=== PATIENT | female | born 1935 | race Caucasian/White ===

== ENCOUNTER 2016-07-29 05:53 | Emergency (ER) | payer MEDICARE, OTHER ==
[~2016-07-29] VITALS: Ht 157.5 cm; Wt 75.0 kg
[~2016-07-29 05:53] MED LIST: ASPI-110 PO; BIOT1000 PO; COEN1CAP PO; FLUT1SPR5 EACH NARE; LANS30CA PO; MULT-135 PO; PRAV20TA2 PO
[2016-07-29 05:55] VITALS: BP 134/81; PULSE 92; RESP 16; TEMP 97.8; O2SAT 92
[2016-07-29] MEDS ORDERED: PROPOFOL 200 MG/20 ML AMP IV ONE (06:00)
[2016-07-29] MEDS ORDERED: SODIUM CHLORIDE 0.9% FLUSH 10 ML FLUSH IVF PRN (06:00)
[2016-07-29 06:40] VITALS: O2SAT 96
--- NOTE | 2016-07-29 06:43 | PD ---
HPI Chief Complaint: Fall Time Seen by Provider: 05:55 Travel History International Travel<30 days: No Contact w/Intl Traveler<30days: No Traveled to known affect area: No History of Present Illness HPI 81-year-old female. Patient has a history of recurrent left hip dislocation. Today she rolled over in bed and felt a sudden onset severe left hip pain. She called EMS. They administered 10 mg morphine and brought her here. She reports moderate improvement. No other traumatic injury to report. She has a history of left total hip arthroplasty. PFSH Past Medical History Hx Anticoagulant Therapy: Yes (ASA 81 MG PO) Arthritis: Yes Cardiac Catheterization: Yes Cardiovascular Problems: Yes (HYPERLIPIDEMIA/CARDIAC WORK UP RECENTLY) High Cholesterol: Yes Gastrointestinal Disorders: Yes (barretts esophagus) Musculoskeletal: Yes (arthritis) Tetanus Vaccination: < 5 Years PNEUMOCCOCAL Vaccine (Year): 1 Menopausal: Yes : 2 Past Surgical History Abdominal Surgery: Yes (lap karli) Cholecystectomy: Yes (LAP KARLI ) Gynecologic Surgery: Yes (x2 vaginal deliveries) Joint Replacement: Yes (BILATERAL HIP REPLACEMENT , R KNEE ) Oral Surgery: Yes Thoracic Surgery: No Tonsillectomy: Yes Other Surgery: Yes Social History Alcohol Use: Yes (OCC WINE) Tobacco Use: No Substance Use: No Allergies-Medications (Allergen,Severity, Reaction): Coded Allergies: HMG-CoA Reductase Inhibitors (Verified Allergy, Severe, 07/29/16) cant move Lipitor (Verified Allergy, Severe, muscle weakness, 07/29/16) Reported Meds & Prescriptions Reported Meds & Active Scripts Active Reported Lansoprazole 30 Mg Capdr 30 Mg PO DAILY Multi Vitamin (Multiple Vitamin) 1 Tab Tab 1 Tab PO DAILY Flonase Allergy Relief Nasal [place] (Fluticasone Nasal [place]) 50 Mcg/Act [place] 1 [place] EACH NARE DAILY PRN Co Q-10 (Coenzyme Q10 (Ubidecarenone)) 100 Mg Cap 100 Mg PO HS Biotin 1,000 Mcg Tab 1,000 Mcg PO DAILY Aspirin 81 (Aspirin) 81 Mg Tabdr 81 Mg PO DAILY Pravastatin 20 Mg Tab 20 Mg PO HS Review of Systems Except as stated in HPI: all other systems reviewed are Neg Physical Exam Narrative GENERAL: 81-year-old female pleasant well-nourished well-developed SKIN: Focused skin assessment warm/dry. HEAD: Atraumatic. Normocephalic. EYES: Pupils equal and round. No scleral icterus. No injection or drainage. ENT: No nasal bleeding or discharge. Mucous membranes pink and moist. NECK: Trachea midline. No JVD. CARDIOVASCULAR: Regular rate and rhythm. No murmur appreciated. RESPIRATORY: No accessory muscle use. Clear to auscultation. Breath sounds equal bilaterally. GASTROINTESTINAL: Abdomen soft, non-tender, nondistended. Hepatic and splenic margins not palpable. MUSCULOSKELETAL: Left lower extremity shortened and internally rotated. NEUROLOGICAL: Awake and alert. No obvious cranial nerve deficits. Motor grossly within normal limits. Normal speech. PSYCHIATRIC: Appropriate mood and affect; insight and judgment normal. Data Data Last Documented VS Vital Signs Date Time Temp Pulse Resp B/P Pulse Ox O2 Delivery O2 Flow Rate FiO2 07/29/16 07:17 97 07/29/16 06:40 Nasal Cannula 2 07/29/16 05:55 97.8 92 16 134/81 Vital signs reviewed Orders Hip, Uni(Ap&Lat) Wo Ap Pelvis (07/29/16 05:55) Iv Access Insert/Monitor (07/29/16 05:55) Oximetry (07/29/16 05:55) [employer] Request For Service (07/29/16 05:55) Ecg Monitoring (07/29/16 05:55) Sodium Chloride 0.9% Flush (Ns Flush) (07/29/16 06:00) Propofol 200 Mg/20 Ml Inj (Diprivan 200 (07/29/16 06:00) Pelvis, Ap Only (Routine) (07/29/16 ) Naloxone Inj (Narcan Inj) (07/29/16 07:15) Immobilizer Knee 20 Inch (07/29/16 ) [facility] Medical Decision Making Medical Screen Exam Complete: Yes Emergency Medical Condition: Yes Medical Record Reviewed: Yes Differential Diagnosis hip dislocation dislocation, femur fracture, pelvis fracture Narrative Course Hip reduced. Post reduction film normal. Knee immobilizer. F/u w ortho. Last 24 hours Impressions Hip X-Ray 07/29/16 0555 Signed Impressions: Service Date/Time: Friday, July 29, 2016 06:36 - CONCLUSION: Left hip prosthesis dislocation. Buzz Leal Jr., MD Pelvis X-Ray 07/29/16 0000 Signed Impressions: Service Date/Time: Friday, July 29, 2016 07:19 - CONCLUSION: Successful reduction of the previously seen left femoral component dislocation. Rocco Sanchez MD Diagnosis Primary Impression: Dislocation of hip, left, closed Qualified Code: S73.005S - Dislocation of hip, left, closed, sequela Referrals: Orthopaedic Surgeon 3 days Additional Instructions: You have a choice when it comes to health care, and we are glad that you chose [facility]. Hopefully, we have met your expectations on today's visit. You are welcome to return to [facility] at any time, as we are committed to meeting the health care needs of our community. Med/Other Pt SpecificInfo: No Change to Meds Disposition: 01 DISCHARGE HOME Condition: Stable Andre Hart MD Jul 29, 2016 06:43
--- NOTE | 2016-07-29 06:56 | RADRPT ---
EXAM DATE/TIME: 07/29/2016 06:36 [facility] COMPARISON: No previous studies available for comparison. INDICATIONS : Fall. Left hip dislocation. MEDICAL HISTORY : Osteoarthritis. SURGICAL HISTORY : None. Total hip. ENCOUNTER: Initial ACUITY: 1 day PAIN SCORE: 9/10 LOCATION: Left pelvis FINDINGS: 2 views of the left hip reveal bilateral hip prostheses. There is superior dislocation of the femoral head component from the acetabular component involving the left hip. No fracture observed. CONCLUSION: Left hip prosthesis dislocation. Buzz Leal Jr., MD on July 29, 2016 at 6:53 Board Certified Radiologist. This report was verified electronically.
[2016-07-29] MEDS ORDERED: NALOXONE HCL 0.4 MG/ML AMP IV PUSH ONE (07:15)
[2016-07-29 07:17] VITALS: O2SAT 97
--- NOTE | 2016-07-29 07:29 | RADRPT ---
EXAM DATE/TIME: 07/29/2016 07:19 [facility] COMPARISON: HIP LEFT (AP&LAT 2/3VWS) WO AP PELVIS, July 29, 2016, 6:36. PELVIS AP ONLY, February 23, 2016, 11:0 0. PELVIS AP ONLY, February 23, 2016, 12:25. INDICATIONS : Post reduction. MEDICAL HISTORY : Osteoarthritis. SURGICAL HISTORY : Bilateral hip replacements. ENCOUNTER: Subsequent ACUITY: 1 day PAIN SCORE: 0/10 LOCATION: Left hip. FINDINGS: Bilateral hip prostheses are in place. The previously seen left femoral component dislocation has bee n successfully reduced. No fracture is seen. The pubic symphysis and sacroiliac joints appear normall y aligned. CONCLUSION: Successful reduction of the previously seen left femoral component dislocation. Rocco Sanchez MD on July 29, 2016 at 7:24 Board Certified Radiologist. This report was verified electronically.
== END 2016-07-29 10:18 | disposition home or self-care (01) ==
LOC: NEPC 05:53
DX: T84.021A Dislocation of internal left hip prosthesis, initial encounter (principal); E78.00 Pure hypercholesterolemia, unspecified; K22.70 Barrett's esophagus without dysplasia; Z96.643 Presence of artificial hip joint, bilateral; X50.0XXA Overexertion from strenuous movement or load, initial encounter; X50.9XXA Other and unspecified overexertion or strenuous movements or postures, initial encounter; Y93.89 Activity, other specified; Y92.003 Bedroom of unspecified non-institutional (private) residence as the place of occurrence of the external cause; Z79.82 Long term (current) use of aspirin
CPT/HCPCS: 27265; 72170; 73502; 99283; L1830

== ENCOUNTER 2018-03-23 15:38 | Inpatient (IN) ==
--- NOTE | 2018-03-23 16:20 | ED ---
HPI General Chief Complaint: Fall Stated Complaint: Fall Time Seen by Provider: 03/23/18 16:15 Source: patient and EMS Mode of arrival: EMS Limitations: no limitations History of Present Illness HPI Narrative: 82-year-old female patient with previous history of left hip dislocation, presents to the ER today because she had lost balance and fell onto the left hip area, is currently complaining of left hip pain. She denies any head injury, loss of consciousness, or any other injuries. She is unable to range the left hip secondary to pain. Modifying Factors: None Associated Signs & Symptoms: Fall, left hip injury Risk Factors: Previous history of left hip dislocation Related Data Home Medications Medication Instructions Recorded Confirmed aspirin [Ecotrin Low Strength] 81 mg PO DAILY 03/23/18 03/23/18 fesoterodine [Toviaz] 4 mg PO DAILY 03/23/18 03/23/18 lansoprazole 30 mg PO DAILY 03/23/18 03/23/18 multivitamin [Multiple Vitamins] 1 tab PO DAILY 03/23/18 03/23/18 Allergies Allergy/AdvReac Type Severity Reaction Status Date / Time amlodipine Allergy Severe Weakness Verified 03/23/18 16:15 atorvastatin Allergy Severe muscle Verified 03/23/18 16:15 weakness pravastatin Allergy Severe Weakness Verified 03/23/18 16:15 simvastatin Allergy Severe Weakness Verified 03/23/18 16:15 Review of Systems ROS: all other systems reviewed are negative [facility] Medical History Medical History Mosqueda esophagus (Acute) Hip dislocation, left (Acute) Surgical History Surgical History History of hip replacement (Acute) History of knee replacement (Acute) Social History Social History Substance History: No History of Abuse Smoking Status: Never smoker How Often Do You Have a Drink Containing Alcohol: Never Recent Travel in [facility] within the Last 8 Weeks: No Recent Out of Country Travel within the Last 8 Weeks: No Immunization History Tetanus Immunization: <5 Years Exam Narrative Exam Narrative: GENERAL: Well-developed elderly female patient currently in moderate distress. Awake and oriented x3. SKIN: Focused skin assessment warm/dry. HEAD: Atraumatic. Normocephalic. EYES: Pupils equal and round. No scleral icterus. No injection or drainage. ENT: No nasal bleeding or discharge. Mucous membranes pink and moist. NECK: Trachea midline. No JVD. CARDIOVASCULAR: Regular rate and rhythm. No murmur appreciated. RESPIRATORY: No accessory muscle use. Clear to auscultation. Breath sounds equal bilaterally. GASTROINTESTINAL: Abdomen soft, non-tender, nondistended. Hepatic and splenic margins not palpable. Pelvis: Stable, tender palpation of the left hip area, decreased range of motion , held in flexion secondary to pain. Bounding dorsal pedis pulses and neurovascularly intact below the injury. MUSCULOSKELETAL: No obvious deformities. No clubbing. No cyanosis. No edema. NEUROLOGICAL: Awake and alert. No obvious cranial nerve deficits. Motor grossly within normal limits. Normal speech. PSYCHIATRIC: Appropriate mood and affect; insight and judgment normal. Course Initial Documented Vital Signs Temperature 98.7 F 03/23/18 16:04 Pulse Rate 90 03/23/18 16:04 Respiratory Rate 14 03/23/18 16:04 Blood Pressure 147/73 H 03/23/18 16:04 Pulse Oximetry 89 L 03/23/18 16:04 Last Documented Vital Signs Temperature 98.7 F 03/23/18 16:04 Pulse Rate 87 03/23/18 18:21 Respiratory Rate 14 03/23/18 18:21 Blood Pressure 146/73 H 03/23/18 18:21 Pulse Oximetry 96 03/23/18 18:21 Medical Decision Making MDM Narrative Medical decision making narrative: Initial x-ray did not show any signs of acute fractures but patient was fairly tender and CAT scan was done, shows fractures around the prosthesis area. Case was discussed with Dr. Rose who is covering for Dr. Avery, and he states that the patient should be medically admitted with consult to Dr. Avery. Case was discussed with Dr. Naik for admission. Medical Screen Exam Complete: Yes Emergency Medical Condition: Yes Differential Diagnosis Differential Diagnosis: Hip contusion versus fractures versus dislocation Imaging Data Attestation: I personally reviewed and interpreted this imaging study as follows : Radiologist's impression: Hip X-Ray 03/23/18 16:12 CONCLUSION: Intact bilateral total hip prosthesis for technique and no evidence for fracture . Hip CT 03/23/18 16:53 CONCLUSION: 1. There are fractures not visualized on the patient's prior plain radiographs involving the left femur, however the total hip arthroplasty appears intact and alignment is anatomical. Discharge Plan Discharge Disposition Patient Disposition: ED Admit(ED Internal Use Only) Discharge Condition Condition: Stable Discharge Order Discharge Orders: ED Use Only Admit Order (Routine); Ordered 03/23/18 Ordered By: Hamida Glez Discharge Details Anticipated Discharge Date: 03/23/18 Diagnosis: Closed fracture of left hip Physicians Team ED Provider: Hamida Glez Primary Care Provider: Luz Santos Rxs /Orders / Referrals /Forms Prescriptions: No Action multivitamin [Multiple Vitamins] Tablet 1 tab PO DAILY RF: 0 aspirin [Ecotrin Low Strength] 81 mg Tablet,Delayed Release (Dr/Ec) 81 mg PO DAILY RF: 0 lansoprazole 30 mg Capsule,Delayed Release(Dr/Ec) 30 mg PO DAILY RF: 0 fesoterodine [Toviaz] 4 mg Tablet Extended Release 24 Hr 4 mg PO DAILY RF: 0 Discharge Interventions Interventions: Vital Signs Last Done: 03/23/18 18:21 Discharge Planning - Case Management Last Done: 03/23/18 17:38 Status ED Status: Admitted Patient
--- NOTE | 2018-03-23 16:45 | XR ---
EXAM DATE: 03/23/2018 4:40 PM EST AGE/SEX: 82 years / Female INDICATIONS: Pain from fall on right side. CLINICAL DATA: This is the patient's initial encounter. Patient reports that signs and symptoms have been present for 1 day and indicates a pain score of 10/10. MEDICAL/SURGICAL HISTORY: None. . Hip replacement, bilateral. COMPARISON: No prior exams available for comparison. FINDINGS: Total hip arthroplasty is in place bilaterally. The femoral and acetabular components parris ear intact. There are no signs of loosening or fracture. No definite fractures, or dislocations are identified. No definite lytic or sclerotic lesion is seen . There are degenerative changes in lower lumbosacral spine and symphysis pubi. CONCLUSION: Intact bilateral total hip prosthesis for technique and no evidence for fracture . Electronically signed by: Tamiko Washington MD Board Certified Radiologist 03/23/2018 4:43 PM EST
--- NOTE | 2018-03-23 18:30 | CT ---
EXAM DATE: 03/23/2018 6:23 PM EST AGE/SEX: 82 years / Female INDICATIONS: Trauma; fall. Left hip pain. CLINICAL DATA: This is the patient's initial encounter. Patient reports that signs and symptoms have been present for 1 day and indicates a pain score of 7/10. MEDICAL/SURGICAL HISTORY: . Left hip dislocation, Mosqueda's esophagus . hip and knee replacements RADIATION DOSE: 24.88 CTDI (mGy) COMPARISON: No prior exams available for comparison. TECHNIQUE: Multiple contiguous axial images were acquired using a multirow detector CT scanner witho ut contrast. Multiplanar reconstruction was performed in the sagittal and coronal planes. Using aut omated exposure control and adjustment of the mA and/or kV according to patient size, radiation dose was kept as low as reasonably achievable to obtain optimal diagnostic quality images. DICOM format i mage data is available electronically for review and comparison. FINDINGS: There are numerous diverticuli within the colon mainly the sigmoid colon without signs of diverticuli tis for technique. Hip arthroplasty is seen without signs of loosening, however there is a small fracture involving the proximal femur medially with a questionable fracture underneath the greater trochanter not visualized on the patient's plain radiographs. The alignment however is anatomical. CONCLUSION: 1. There are fractures not visualized on the patient's prior plain radiographs involving the left fe mur, however the total hip arthroplasty appears intact and alignment is anatomical. Electronically signed by: Tamiko Washington MD Board Certified Radiologist 03/23/2018 6:28 PM EST
[2018-03-23] MEDS ORDERED: Acetaminophen 325 MG Tablet PO PRN (19:01)
[2018-03-23] MEDS ORDERED: Bisacodyl 10 MG Supp RECTAL PRN (19:01)
[2018-03-23 19:03] LABS: Baso # (Auto) 0.1 th/mm3 (0.0-0.2); Baso % (Auto) 0.5 % (0.0-2.0); Eos # (Auto) 0.1 th/mm3 (0.0-0.4); Eos % (Auto) 0.5 % (0.0-4.0); Hematocrit 39.8 % (35.0-46.0); Hemoglobin 13.3 gm/dL (11.6-15.3); Lymph # (Auto) 1.1 th/mm3 (1.0-4.8); Lymph % (Auto) 8.9 % (9.0-44.0); Mean Corpuscular HGB Conc 33.4 % (32.0-36.0); Mean Corpuscular Hemoglobin 30.1 pg (27.0-34.0); Mean Corpuscular Volume 90.1 fL (80.0-100.0); Mean Platelet Volume 8.4 fL (7.0-11.0); Mono # (Auto) 0.6 th/mm3 (0.0-0.9); Mono % (Auto) 5.1 % (0.0-8.0); Neut # (Auto) 10.3 th/mm3 (1.8-7.7); Platelet Count 269 th/mm3 (150-450); Red Blood Count 4.41 mil/mm3 (4.00-5.30); Red Cell Distribution Width 13.2 % (11.6-17.2); White Blood Count 12.2 th/mm3 (4.0-11.0)
[2018-03-23 19:22] LABS: Calcium 8.7 mg/dL (8.5-10.1); Carbon Dioxide 24.1 meq/L (21.0-32.0); Potassium 3.9 meq/L (3.5-5.1)
[2018-03-23] MEDS: Sod Chloride 0.9% Inj 1,000 ML IV.CONT SCH (19:55)
[2018-03-23] MEDS: diazePAM 5 MG Tablet PO PRN (20:05)
--- NOTE | 2018-03-23 20:13 | P.HPIM ---
History of Present Illness Primary Care Physician: Luz Santos MD History of Present Illness: This is an 82-year-old female with a PMH of Mosqueda's Esophagus and h/o Hip Replacement who was brought to the ER after fall w/ complaints of left hip pain. Pain is intermittent, sharp, severe, 10/10, associated w/ muscle spasm and worse w/ movement. No head trauma or LOC reported. On arrival, BP 147/73, HR 90, O2 sat 97% on RA, Afebrile. WBC 12.2. Chemistry unremarkable except for GFR 66. Hip X-ray intact bilateral hip prosthesis CT Hip fractures not seen on x-rays involving left femur. Ortho consulted, plan is for surgical intervention in am. - Diagnosis (1) Fall (2) Closed fracture of left hip (3) Leukocytosis (4) Dehydration Inpatient Certification: I certify that the inpatient services were ordered in accordance with Medicare regulations governing the order. This includes certification that hospital inpatient services are reasonable and necessary and in the case of services not specified as inpatient-only under 42 CFR 419.22(n), that they are appropriately provided as inpatient services in accordance to with the 2-midnight benchmark under 43 CFR 412.3(e) Estimated Total Length of Stay (Days): 2 Plans for Post Hospital Care: Not yet determined Review of Systems PAST FAMILY HISTORY: Reviewed. No h/o DM or CAD All other systems reviewed negative except as stated in HPI PMFSH - History History Provided By: Patient, Family Member - Medical History Medical History: Medical History (Last Reviewed 03/23/18 @ 16:20 by Hamida Glez MD) Mosqueda esophagus Hip dislocation, left - Surgical History Surgical History: Surgical History (Last Reviewed 03/23/18 @ 16:20 by Hamida Glez MD) History of hip replacement History of knee replacement - Tobacco History Smoking Status: Never smoker - Alcohol History How Often Do You Have a Drink Containing Alcohol: Never - Substance Use History Substance History: No History of Abuse - Travel History Recent Travel in the [place] Within the Last 8 Weeks: No Recent Travel Out of the Country Within the Last 8 Weeks: No - Immunization History Tetanus Immunization: <5 Years Medications and Allergies Active Medications: Active Medications Acetaminophen (Tylenol) 650 mg PO Q4H PRN PRN Reason: Temp > 100.4 Hydrocodone Bitart/Acetaminophen ([place] 5/325) 1 tab PO Q4H PRN PRN Reason: PAIN 3-5 Last Admin: 03/23/18 19:57 Dose: 1 tab Al Hydroxide/Mg Hydroxide (Milk Of Magnesia Liq) 30 ml PO Q12H PRN PRN Reason: Mild Constipation Bisacodyl (Dulcolax Supp) 10 mg RECTAL DAILY PRN PRN Reason: SEVERE CONSITIPATION Diazepam (Valium) 5 mg PO Q8H PRN PRN Reason: MUSCLE SPASM Last Admin: 03/23/18 20:05 Dose: 5 mg Sodium Chloride (Ns Inj) 1,000 mls @ 100 mls/hr IV.CONT .Q10H NORY Last Admin: 03/23/18 19:55 Dose: 100 mls/hr Lactulose (Lactulose Liq) 30 ml PO DAILY PRN PRN Reason: SEVERE CONSITIPATION Morphine Sulfate (Morphine Inj) 2 mg IV.PUSH Q4H PRN PRN Reason: PAIN 6-10 Multivitamins (Theragran) 1 tab PO DAILY [facility] Ondansetron HCl (Zofran Inj) 4 mg IV.PUSH Q6H PRN PRN Reason: NAUSEA OR VOMITING Pantoprazole Sodium (Protonix) 40 mg PO DAILY [facility] Senna/Docusate Sodium (Garima-Colace) 1 tab PO BID [facility] Sennosides (Senokot) 17.2 mg PO Q12H PRN PRN Reason: Moderate Constipation Sodium Chloride (Ns Flush) 2 ml IV.FLUSH BID [facility] Sodium Chloride (Ns Flush) 2 ml IV.FLUSH PRN PRN PRN Reason: FLUSH AFTER USING IV ACCESS Tolterodine Tartrate (Detrol La) 4 mg PO DAILY [facility] Allergies Allergy/AdvReac Type Severity Reaction Status Date / Time amlodipine Allergy Severe Weakness Verified 03/23/18 16:15 atorvastatin Allergy Severe muscle Verified 03/23/18 16:15 weakness pravastatin Allergy Severe Weakness Verified 03/23/18 16:15 simvastatin Allergy Severe Weakness Verified 03/23/18 16:15 Home Medications Medication Instructions Recorded Confirmed Type aspirin [Ecotrin Low Strength] 81 mg PO DAILY 03/23/18 03/23/18 History fesoterodine [Toviaz] 4 mg PO DAILY 03/23/18 03/23/18 History lansoprazole 30 mg PO DAILY 03/23/18 03/23/18 History multivitamin [Multiple Vitamins] 1 tab PO DAILY 03/23/18 03/23/18 History Exam Vital signs: Vital Signs 03/23/18 16:04 03/23/18 16:09 03/23/18 18:21 Temperature 98.7 F Pulse Rate 90 91 H 87 Respiratory Rate 14 24 14 Blood Pressure 147/73 H 137/68 146/73 H Pulse Oximetry 89 L 97 96 03/23/18 19:00 Temperature Pulse Rate 96 H Respiratory Rate 18 Blood Pressure 159/74 H Pulse Oximetry 97 Intake & Output 03/23/18 03/23/18 03/24/18 06:59 18:59 06:59 Weight 79.379 kg Narrative: PE: GENERAL: Elderly white female in no acute distress. SKIN: Focused skin assessment warm and dry. HEENT: PERRLA, EOMI. No scleral icterus or conjunctival pallor. No lid lag or facial droop. CARDIOVASCULAR: Regular rate and rhythm. No obvious murmurs to auscultation. No chest tenderness to palpation. RESPIRATORY: No obvious rhonchi or wheezing. Clear to auscultation. Breath sounds equal bilaterally. GASTROINTESTINAL: Abdomen soft, non-tender, nondistended. BS normal. MUSCULOSKELETAL: Extremities without clubbing, cyanosis, or edema. No obvious deformities. Decreased ROM of LLE due to injury. NEUROLOGICAL: Awake, alert and oriented x4. No focal neurologic deficits. Moving both upper and lower extremities spontaneously. PSYCHIATRIC: Appropriate mood and affect. Insight and judgment normal. Results - Labs CBC & Chem 7: 03/23/18 18:30 03/23/18 18:30 Labs: Short CBC 03/23/18 Range/Units 18:30 WBC 12.2 H (4.0-11.0) th/mm3 Hgb 13.3 (11.6-15.3) gm/dL Hct 39.8 (35.0-46.0) % Plt Count 269 (150-450) th/mm3 BMP 03/23/18 18:30 Sodium 139 Potassium 3.9 Chloride 110 H Carbon Dioxide 24.1 BUN 18 Creatinine 0.83 Calcium 8.7 - Imaging Impressions Hip X-Ray 03/23/18 16:12 CONCLUSION: Intact bilateral total hip prosthesis for technique and no evidence for fracture . Hip CT 03/23/18 16:53 CONCLUSION: 1. There are fractures not visualized on the patient's prior plain radiographs involving the left femur, however the total hip arthroplasty appears intact and alignment is anatomical. Caprini VTE Risk Assessment Caprini VTE Risk Assessment: No/Low Risk (score <= 1) Caprini Risk Assessment Model: Point Value = 1 Point Value = 2 Point Value = 3 Point Value = 5 Age 41-60 Minor surgery BMI > 25 kg/m2 Swollen legs Varicose veins or History of unexplained or recurrent spontaneous Oral contraceptives or hormone replacement Sepsis (< 1 month) Serious lung disease, including pneumonia (< 1 month) Abnormal pulmonary function Acute myocardial infarction Congestive heart failure (< 1 month) History of inflammatory bowel disease Medical patient at bed rest Age 61-74 Arthroscopic surgery Major open surgery (> 45 min) Laparoscopic surgery (> 45 min) Malignancy Confined to bed (> 72 hours) Immobilizing plaster cast Central venous access Age >= 75 History of VTE Family history of VTE Factor V Leiden Prothrombin [id number] Lupus anticoagulant Anticardiolipin antibodies Elevated serum homocysteine Heparin-induced thrombocytopenia Other congenital or acquired thrombophilia Stroke (< 1 month) Elective arthroplasty Hip, pelvis, or leg fracture Acute spinal cord injury (< 1 month) Prophylaxis Regimen: Total Risk Factor Score Risk Level Prophylaxis Regimen 0-1 Low Early ambulation 2 Moderate Order ONE of the following: *Sequential Compression Device (SCD) *Heparin 5000 units SQ BID 3-4 Higher Order ONE of the following medications: *Heparin 5000 units SQ TID *Enoxaparin/Lovenox 40 mg SQ daily (WT < 150 kg, CrCl > 30 mL/min) *Enoxaparin/Lovenox 30 mg SQ daily (WT < 150 kg, CrCl > 10-29 mL/min) *Enoxaparin/Lovenox 30 mg SQ BID (WT < 150 kg, CrCl > 30 mL/min) AND/OR *Sequential Compression Device (SCD) 5 or more Highest Order ONE of the following medications: *Heparin 5000 units SQ TID (Preferred with Epidurals) *Enoxaparin/Lovenox 40 mg SQ daily (WT < 150 kg, CrCl > 30 mL/min) *Enoxaparin/Lovenox 30 mg SQ daily (WT < 150 kg, CrCl > 10-29 mL/min) *Enoxaparin/Lovenox 30 mg SQ BID (WT < 150 kg, CrCl > 30 mL/min) AND *Sequential Compression Device (SCD) Assessment and Plan - Assessment (1) Fall Code(s): W19.XXXA - Unspecified fall, initial encounter Status: Acute (2) Closed fracture of left hip Code(s): S72.002A - Fracture of unspecified part of neck of left femur, initial encounter for closed fracture Status: Acute (3) Leukocytosis Code(s): D72.829 - Elevated white blood cell count, unspecified Status: Acute (4) Dehydration Code(s): E86.0 - Dehydration Status: Acute - Plan A/P: 1. Fall: s/p mechanical fall, denies LOC or head trauma, no other injuries reported. 2. Left Hip Fx: Hip X-ray w/ no obvious fx, however CT Hip w/ fx left femur not seen on X-ray, images reviewed. Ortho consulted, plan for surgical intervention in am. NPO after midnight, IVF, analgesics/antiemetics as needed. 3. Leukocytosis: WBC 12, no signs/symptoms of infection, afebrile, check U/a to eval for underlying UTI. 4. Dehydration: GFR 66, IVF for hydration, monitor I/O, repeat labs in am. 5. DVT Prophylaxis: Anticoagulation post op 6. Social work for d/c planning as needed. 7. Case discussed w/ ER physician at length, labs/records/imaging reviewed by me.
[2018-03-23] MEDS: Senna/Docusate Sodium 8.6/50 MG Tablet PO SCH (21:42)
[2018-03-23] MEDS ORDERED: Metoprolol Tartrate 25 MG Tablet PO ONE (22:56)
[2018-03-23] MEDS ORDERED: Chlorhexidine Gluconate 2% 1 Pack (2 Cloths) TOPICAL ONE (22:56)
[2018-03-23] MEDS ORDERED: Sodium Chlor 0.9% Inj 500 ML IV.SIG SCH (23:00)
[2018-03-24] MEDS: Morphine Sulfate Inj 2 MG/ML Vial IV.PUSH PRN ×3 (00:33→08:24)
[2018-03-24] MEDS: diazePAM 5 MG Tablet PO PRN (04:27)
[2018-03-24 05:00] LABS: Bilirubin,Urine Negative (Negative); Clarity,Urine Clear (Clear); Color,Urine Yellow (Yellw/Straw); Glucose,Urine (UA) Negative (Negative); Leukocyte Esterase,Urine Negative (Negative); Mucus,Urine Few /lpf (Occasional); Nitrite,Urine Negative (Negative); Specific Gravity,Urine 1.019 (1.002-1.035); Squamous Epithelial Cell,Urine 1 /hpf (0-5)
[2018-03-24 05:28] LABS: Baso % (Auto) 0.4 % (0.0-2.0); Eos % (Auto) 0.5 % (0.0-4.0); Hematocrit 38.5 % (35.0-46.0); Hemoglobin 13.1 gm/dL (11.6-15.3); Lymph # (Auto) 1.3 th/mm3 (1.0-4.8); Lymph % (Auto) 14.7 % (9.0-44.0); Mean Corpuscular Hemoglobin 30.9 pg (27.0-34.0); Mean Platelet Volume 7.4 fL (7.0-11.0); Mono # (Auto) 0.6 th/mm3 (0.0-0.9); Mono % (Auto) 7.4 % (0.0-8.0); Neut # (Auto) 6.7 th/mm3 (1.8-7.7); Platelet Count 231 th/mm3 (150-450); Red Blood Count 4.23 mil/mm3 (4.00-5.30); White Blood Count 8.7 th/mm3 (4.0-11.0)
[2018-03-24 05:54] LABS: Alanine Aminotransferase 24 U/L (10-53); Albumin 3.2 g/dL (3.4-5.0); Anion Gap 7 meq/L (5-15); Aspartate Aminotransferase 25 U/L (15-37); Blood Urea Nitrogen 10 mg/dL (7-18); Calcium 8.2 mg/dL (8.5-10.1); Carbon Dioxide 23.8 meq/L (21.0-32.0); Chloride 107 meq/L (98-107); Glomerular Filtration Rate Greater Than 89 mL/min (>89); Glucose,Random 103 mg/dL (74-106); Potassium 3.5 meq/L (3.5-5.1); Sodium 138 meq/L (136-145)
[2018-03-24 05:57] LABS: Alkaline Phosphatase 106 U/L (45-117)
[2018-03-24] MEDS: Sod Chloride 0.9% Inj 1,000 ML IV.CONT SCH ×2 (06:06→19:27)
--- NOTE | 2018-03-24 06:52 | P.CONOP ---
[facility] Orthopedics Consult Note - [facility] Consult date: 03/24/18 Chief complaint: Hip fracture Narrative: This 86-year-old woman is well known to me having had a total hip arthroplasty by the undersigned in 2009. Yesterday, she fell with an apparent low velocity fall directly striking her left hip. She was brought to [facility] emergency department was found to have a fracture and was admitted. Her current complaints are of significant pain and spasm in the left thigh. She has also had some instability with the prosthesis in the past. [facility] - History History Provided By: Patient - Medical History Medical History: Medical History (Last Reviewed 03/23/18 @ 16:20 by Hamida Glez MD) Mosqueda esophagus Hip dislocation, left - Surgical History Surgical History: Surgical History (Last Reviewed 03/23/18 @ 16:20 by Hamida Glez MD) History of hip replacement History of knee replacement - Tobacco History Second Hand Smoke Exposure: No Smoking Status: Never smoker - Alcohol History How Often Do You Have a Drink Containing Alcohol: Never - Substance Use History Substance History: No History of Abuse - Travel History Recent Travel in the [place] Within the Last 8 Weeks: No Recent Travel Out of the Country Within the Last 8 Weeks: No - Immunization History Tetanus Immunization: <5 Years Hx Influenza Vaccine This Season: No Medications and Allergies Active Medications: Active Medications Acetaminophen (Tylenol) 650 mg PO Q4H PRN PRN Reason: Temp > 100.4 Hydrocodone Bitart/Acetaminophen ([place] 5/325) 1 tab PO Q4H PRN PRN Reason: PAIN 3-5 Last Admin: 03/24/18 00:55 Dose: 1 tab Al Hydroxide/Mg Hydroxide (Milk Of Magnderrick Liq) 30 ml PO Q12H PRN PRN Reason: Mild Constipation Bisacodyl (Dulcolax Supp) 10 mg RECTAL DAILY PRN PRN Reason: SEVERE CONSITIPATION Diazepam (Valium) 5 mg PO Q8H PRN PRN Reason: MUSCLE SPASM Last Admin: 03/24/18 04:27 Dose: 5 mg Sodium Chloride (Ns Inj) 1,000 mls @ 100 mls/hr IV.CONT .Q10H NORY Last Admin: 03/24/18 06:06 Dose: 100 mls/hr Lactated Ringer's (Lr 1000 Ml Inj) 1,000 mls @ 30 mls/hr IV.SIG .Q24H PENDING SALE TO [facility] Stop: 03/24/18 22:59 Sodium Chloride (Ns Inj) 500 mls @ 30 mls/hr IV.SIG .Q10H PENDING SALE TO [facility] Lactulose (Lactulose Liq) 30 ml PO DAILY PRN PRN Reason: SEVERE CONSITIPATION Morphine Sulfate (Morphine Inj) 2 mg IV.PUSH Q4H PRN PRN Reason: PAIN 6-10 Last Admin: 03/24/18 04:29 Dose: 2 mg Multivitamins (Theragran) 1 tab PO DAILY PENDING SALE TO [facility] Ondansetron HCl (Zofran Inj) 4 mg IV.PUSH Q6H PRN PRN Reason: NAUSEA OR VOMITING Pantoprazole Sodium (Protonix) 40 mg PO DAILY PENDING SALE TO [facility] Senna/Docusate Sodium (Garima-Colace) 1 tab PO BID PENDING SALE TO [facility] Last Admin: 03/23/18 21:42 Dose: 1 tab Sennosides (Senokot) 17.2 mg PO Q12H PRN PRN Reason: Moderate Constipation Sodium Chloride (Ns Flush) 2 ml IV.FLUSH BID PENDING SALE TO [facility] Last Admin: 03/23/18 21:42 Dose: Not Given Sodium Chloride (Ns Flush) 2 ml IV.FLUSH PRN PRN PRN Reason: FLUSH AFTER USING IV ACCESS Last Admin: 03/24/18 00:33 Dose: 2 ml Tolterodine Tartrate (Detrol La) 4 mg PO DAILY PENDING SALE TO [facility] Allergies Allergy/AdvReac Type Severity Reaction Status Date / Time amlodipine Allergy Severe Weakness Verified 03/23/18 16:15 atorvastatin Allergy Severe muscle Verified 03/23/18 16:15 weakness pravastatin Allergy Severe Weakness Verified 03/23/18 16:15 simvastatin Allergy Severe Weakness Verified 03/23/18 16:15 Home Medications Medication Instructions Recorded Confirmed Type aspirin [Ecotrin Low Strength] 81 mg PO DAILY 03/23/18 03/23/18 History fesoterodine [Toviaz] 4 mg PO DAILY 03/23/18 03/23/18 History lansoprazole 30 mg PO DAILY 03/23/18 03/23/18 History multivitamin [Multiple Vitamins] 1 tab PO DAILY 03/23/18 03/23/18 History Exam Vital signs: Vital Signs 03/23/18 16:04 03/23/18 16:09 03/23/18 18:21 Temperature 98.7 F Pulse Rate 90 91 H 87 Respiratory Rate 14 24 14 Blood Pressure 147/73 H 137/68 146/73 H Pulse Oximetry 89 L 97 96 03/23/18 19:00 03/23/18 20:22 03/24/18 00:53 Temperature 97.2 F L 97.5 F L Pulse Rate 96 H 91 H 95 H Respiratory Rate 18 18 18 Blood Pressure 159/74 H 151/77 H 140/67 Pulse Oximetry 97 95 93 L 03/24/18 00:55 03/24/18 03:55 Temperature 98.1 F Pulse Rate 94 H Respiratory Rate 18 17 Blood Pressure 139/77 Pulse Oximetry 95 Intake & Output 03/23/18 03/23/18 03/24/18 06:59 18:59 06:59 Intake Total 1240 / 1240 Balance 1240 / 1240 Weight 79.379 kg 83 kg Intake: IV 1000 / 1000 NS Inj 1,000 ML @ 100 mls/hr IV 1000 / 1000 .CONT .Q10H NORY Rx#:[id number] Oral 240 / 240 Other: # Voids 2 Date of Last Bowel Movement 03/22/18 # Bowel Movements 0 Weight On Admission 79.379 kg Narrative: Patient is resting supine in bed in room 1608. Her neurovascular status is intact. There is tenderness about the thigh without a great deal of swelling, surprisingly. The skin appears to be intact. Results - Labs Result Diagrams: 03/24/18 04:59 03/24/18 04:59 Labs: Laboratory Results - last 24 hr 03/23/18 03/23/18 03/24/18 18:30 18:30 04:40 WBC 12.2 H RBC 4.41 Hgb 13.3 Hct 39.8 MCV 90.1 MCH 30.1 MCHC 33.4 RDW 13.2 Plt Count 269 MPV 8.4 Neut % (Auto) 85.0 H Lymph % (Auto) 8.9 L [place] % (Auto) 5.1 Eos % (Auto) 0.5 Baso % (Auto) 0.5 Neut # (Auto) 10.3 H Lymph # (Auto) 1.1 [place] # (Auto) 0.6 Eos # (Auto) 0.1 Baso # (Auto) 0.1 WBC Differential . Differential Comment Auto diff final Sodium 139 Potassium 3.9 Chloride 110 H Carbon Dioxide 24.1 Anion Gap 5 BUN 18 Creatinine 0.83 Estimated GFR 66 L Random Glucose 118 H Calcium 8.7 Total Bilirubin AST ALT Alkaline Phosphatase Total Protein Albumin Urine Color Yellow Urine Clarity Clear Urine pH 6.0 Ur Specific [place] 1.019 Urine Protein Negative Urine Glucose (UA) Negative Urine Ketones Negative Urine Occult Blood Negative Urine Nitrate Negative Urine Bilirubin Negative Urine Urobilinogen Less than 2 Ur Leukocyte Esterase Negative Urine RBC 1 Urine WBC 2 Ur Squamous Epith Cells 1 Urine Mucus Few H Micro UA Comment Culture not ind Ur Microscopic Review Not Reportable Urine Culture Comments Culture not ind 03/24/18 03/24/18 04:59 04:59 WBC 8.7 RBC 4.23 Hgb 13.1 Hct 38.5 MCV 91.0 MCH 30.9 MCHC 34.0 RDW 13.0 Plt Count 231 MPV 7.4 Neut % (Auto) 77.0 H Lymph % (Auto) 14.7 [place] % (Auto) 7.4 Eos % (Auto) 0.5 Baso % (Auto) 0.4 Neut # (Auto) 6.7 Lymph # (Auto) 1.3 [place] # (Auto) 0.6 Eos # (Auto) 0.0 Baso # (Auto) 0.0 WBC Differential . Differential Comment Auto diff final Sodium 138 Potassium 3.5 Chloride 107 Carbon Dioxide 23.8 Anion Gap 7 BUN 10 Creatinine 0.57 Estimated GFR Greater than 89 Random Glucose 103 Calcium 8.2 L Total Bilirubin 0.6 AST 25 ALT 24 Alkaline Phosphatase 106 Total Protein 7.0 Albumin 3.2 L Urine Color Urine Clarity Urine pH Ur Specific [place] Urine Protein Urine Glucose (UA) Urine Ketones Urine Occult Blood Urine Nitrate Urine Bilirubin Urine Urobilinogen Ur Leukocyte Esterase Urine RBC Urine WBC Ur Squamous Epith Cells Urine Mucus Micro UA Comment Ur Microscopic Review Urine Culture Comments - Diagnostic results Imaging: Impressions Hip X-Ray 03/23/18 16:12 CONCLUSION: Intact bilateral total hip prosthesis for technique and no evidence for fracture . Hip CT 03/23/18 16:53 CONCLUSION: 1. There are fractures not visualized on the patient's prior plain radiographs involving the left femur, however the total hip arthroplasty appears intact and alignment is anatomical. Hip x-ray: report reviewed (Radiolucencies can be seen about the proximal femur consistent with a periprosthetic fracture.) Hip CT: report reviewed (There is a periprosthetic fracture that appears to be a type B fracture with dissociation of the prosthesis from the femoral components. This is a fracture going from the greater trochanteric area where there is some comp comminution and spiraling down to the medial distal third of the prosthesis. There is a small cyst at the calcar. It appears that there is complete separation of the prosthesis from the bone medially as well as laterally.) Assessment and Plan - Ortho Post Op Day # 0 - Problem List (1) Garima-prosthetic fracture of femur following total hip arthroplasty Code(s): M97.8XXA - Periprosthetic fracture around other internal prosthetic joint, initial encounter; Z96.649 - Presence of unspecified artificial hip joint Status: Acute Onset Date: ~03/23/18 Qualifiers: Encounter type: initial encounter Qualified Code(s): M97.8XXA - Periprosthetic fracture around other internal prosthetic joint, initial encounter; Z96.649 - Presence of unspecified artificial hip joint - Assessment and Plan This patient has an unstable periprosthetic fracture of the femur. While there is a possibility of doing an open reduction and internal fixation using cables and plates, the prosthesis appears to be loose and a revision of this will probably be necessary. Prostheses will need to be obtained since they are not available in the hospital at this time. The equipment should be available later today. I have explained the procedure to her in detail. I have neither expressed nor implied guarantees. I have explained possible complications, expected results and expected course of treatment. She will need to remain nonweightbearing least 2 months. For this reason, it would be appropriate for her to have inpatient [facility]. In the interim, she will need to remain on bedrest. She should have sequentials or foot pumps.
[2018-03-24] MEDS ORDERED: ceFAZolin 2 GM Premix Inj 2 GM/50 ML PIGGYBACK IV.SIG SCH (08:00)
[2018-03-24] MEDS ORDERED: Chlorhexidine 4% Topical 120 APPLIC/120 ML Bottle TOPICAL SCH (08:00)
[2018-03-24] MEDS ORDERED: Tranexamic Acid Inj 1,000 MG in Sodium Chlor 0.9% Inj 100 ML IV.SIG SCH ×2 (08:00→11:00)
[2018-03-24] MEDS ORDERED: Sodium Chlor 0.9% Inj 60 ML, Bupivacaine Liposo PF 1.3% Inj 20 ML, Bupivacaine/Epi PF 0... P-ARTICULR ONE ×3 (09:00)
[2018-03-24] MEDS ORDERED: Celecoxib 200 MG Capsule PO ONE (09:00)
[2018-03-24] MEDS ORDERED: Sugammadex Inj 200 MG/2 ML Vial IV.PUSH ONE (12:12)
--- NOTE | 2018-03-24 12:16 | ECG ---
Date Performed: 03/23/2018 Time Performed: 18:47:49 PTAGE: 82 years EKG: Sinus rhythm MARKED LEFT AXIS DEVIATION ABNORMAL ECG Since the PREVIOUS TRACING , no significant change noted PREVIOUS TRACIN06/15/2015 09.51 DOCTOR: Leonard Souza Interpretating Date/Time 03/24/2018 12:15:27
[2018-03-24] MEDS ORDERED: HYDROmorphone PF Inj 1 MG/ML Ampul ONE (12:20)
[2018-03-24] MEDS ORDERED: HYDROmorphone PF Inj 1 MG/ML Ampul IV.PUSH ONE (12:45)
[2018-03-24] MEDS ORDERED: fentaNYL Citrate Inj 250 MCG/5 ML Ampul ONE (14:57)
[2018-03-24] MEDS ORDERED: fentaNYL Citrate Inj 100 MCG/2 ML Ampul ONE (14:59)
--- NOTE | 2018-03-24 15:57 | XR ---
EXAM DATE: 03/24/2018 3:51 PM EST AGE/SEX: 82 years / Female INDICATIONS: Open reduction internal fixation of left hip. Cable placement. CLINICAL DATA: This is the patient's subsequent encounter. Patient reports that signs and symptoms h ave been present for 2 days and indicates a pain score of Nonresponsive. MEDICAL/SURGICAL HISTORY: None. . Hip replacement, bilateral. COMPARISON: [facility] [place] W/O CONTRAST, 03/23/2018. . FINDINGS: Left total hip prosthesis appears to be in good position. There is no acute fracture or dislocation. CONCLUSION: Status post left total hip arthroplasty with prosthesis in good position. Electronically signed by: Humberto Perry MD Board Certified Radiologist 03/24/2018 3:55 PM EST
[2018-03-24] MEDS ORDERED: Post-op Orders (for Pharmacy) OTHER STA (16:13)
--- NOTE | 2018-03-24 16:35 | P.OP ---
- Preoperative Diagnosis (1) Garima-prosthetic fracture of femur following total hip arthroplasty - Postoperative Diagnosis (1) Garima-prosthetic fracture of femur following total hip arthroplasty Date of procedure: 03/24/18 Procedure: Open reduction and internal fixation, periprosthetic fracture, left proximal femur, using Dall-Miles cables. Implants: 6 2 mm Dall-Miles cables Anesthesia: GETA, local (Exparel with bupivacaine) Surgeon: Fab Avery MD Transfer Station Operator: INDIA Cantor Estimated blood loss (mL): 650 Pathology: none sent Operation and Findings: Indications and findings: This 82-year-old woman was walking at home and lost balance and fell directly onto her left hip where she had previously had a left total hip arthroplasty. She was brought to [facility] [address] emergency department where she was found to have a fracture and was admitted. Physical findings showed tenderness on any attempted motion or even light palpation on the thigh. Radiographic findings (x-ray and CT scan) showed a periprosthetic fracture with questionable loosening of some areas and loosening of other areas. Operative findings: There is a spiral oblique fracture of the proximal femur that went from the distal one third of the femoral prosthesis medially and went proximally up to the area of the flare of the greater trochanter and origin of the vastus lateralis. Additionally, there was a fracture of the tip of the greater trochanter which was completely nondisplaced. The prosthesis was loose from the medial/distal fragment. The prosthesis had firm ingrowth into the lateral/proximal/trochanteric fragment of the femur. There was disruption of the posterior capsule that appeared to be remote. After fixation of the fracture fragments, the hip was taken through range of motion and showed good stability of the prosthesis. Procedure: The patient was brought to the clean air operating suite and a general anesthetic was administered. She was transferred from the bed to the operating table after being anesthetized. A Christie catheter was inserted. This replaced her external catheter. The patient was positioned in the lateral position on a Biomet lateral positioner. The left hip thigh and leg were prepped with alcohol, Hibiclens and ChloraPrep. The hip was draped free. An appropriate timeout procedure was carried out. The fracture site was identified with C-arm fluoroscopy as well as the tip of the prosthesis. The site was identified on the incision site that had been marked during draping. Local anesthetic was administered with a mixture of Exparel and Marcaine prior to the incision as well as at different intervals during the procedure. The prior incision was made following the prior incisional scar. This was extended distally to below the level of the tip of the prosthesis. The incision was deepened through the subcutaneous tissues to the fascia idalmis and gluteus fascia were were incised in line with the fibers of the skin incision. Hematoma from the fracture was identified at this time. This was evacuated. The vastus lateralis was elevated and incised on the posterior aspect of the linea aspera going up to the greater trochanter. The fracture site was identified. Attention was directed to the hip joint itself. Since there was an opening in the capsule, this opening was extended for full visualization of the acetabulum. There did not appear to be any wear on the polyethylene. The hip was dislocated. The integrity of the femoral prosthesis was judged against the proximal fragment. While the fracture disrupted the distal fragment from the prosthesis, the proximal fragment remained firmly fixed to the greater trochanter and the lateral aspect of the femur adjacent to it. It was elected to repair the fracture rather than revise the entire prosthesis. The fracture was reduced with a speed lock forceps. This gave good stability of the fracture site. A single Dall-Miles cable was placed below the fracture site and tightened. 5 more Dall-Miles cables were sequentially passed around the fracture site going up to the femoral neck. After the position of these was checked with C-arm fluoroscopy, these were tightened appropriately. C-arm fluoroscopy verified excellent position and alignment of the fracture and excellent stability of the fracture. Local anesthetic with the remainder of the above-noted solution was injected throughout the fracture site and the hip. The posterior capsule of the hip was reapproximated to the posterior lateral aspect greater trochanter to affect a seal of the posterior capsule and the hip. The vastus lateralis was reattached at the linea aspera. This was all done with #1 Vicryl interrupted Óscar-Thierry sutures and [id number] sutures respectively. The fascia idalmis and gluteus fascia were repaired with #1 Vicryl interrupted [id number] sutures. The subcutaneous tissues were closed with a combination of interrupted simple sutures with buried knots and a continuous simple suture using 2-0 Vicryl. The skin was closed with continuous subcuticular closure of 4-0 Monocryl. The wound was dressed with Dermabond Prineo and OPTi foam AG. A knee immobilizer was applied. The patient was transferred from the operating room to the recovery room in satisfactory condition having tolerated the procedure well. Counts were correct. Specimens: None.
--- NOTE | 2018-03-24 16:38 | P.PNIM ---
Subjective Interval history: Patient seen resting quietly in bed. Pain appears to be adequately controlled at this time. No chest pain or shortness of breath. No fever or chills. No nausea vomiting or diarrhea. Physical Exam Vital signs: Last Vital Signs Temp 97.2 F L 03/24/18 07:59 Pulse 96 H 03/24/18 07:59 Resp 17 03/24/18 07:59 BP 148/88 H 03/24/18 07:59 Pulse Ox 91 L 03/24/18 07:59 Intake & Output 03/22/18 03/23/18 03/24/18 03/25/18 06:59 06:59 06:59 06:59 Intake Total 1240 / 1240 3160 / 3160 Output Total 1400 / 1400 Balance 1240 / 1240 1760 / 1760 Weight 83 kg Narrative: GENERAL: Well-nourished, well-developed adult female in no obvious distress. SKIN: Warm and dry. HEAD: Atraumatic. Normocephalic. CARDIOVASCULAR: Regular rate and rhythm. RESPIRATORY: No accessory muscle use. Clear to auscultation. Breath sounds equal bilaterally. GASTROINTESTINAL: Abdomen soft, non-tender, distended. Positive bowel sounds. MUSCULOSKELETAL: Extremities without clubbing, cyanosis, or edema. No obvious deformities. Surgical dressing in place to hip. No obvious drainage. NEUROLOGICAL: Awake and alert. No obvious cranial nerve deficits. Motor grossly within normal limits. Normal speech. PSYCHIATRIC: Appropriate mood and affect; insight and judgment good. Urinary Catheter Management Indwelling Urethral Catheter: Cath placed during this visit: yes Urethral indwelling: Yes Reason for continuing: Other continuation reason Insertion date: 03/24/18 Insertion time: 13:25 Results Labs CBC & Chem 7: 03/24/18 04:59 03/24/18 04:59 Imaging Imaging: Impressions Hip X-Ray 03/23/18 16:12 CONCLUSION: Intact bilateral total hip prosthesis for technique and no evidence for fracture . Hip CT 03/23/18 16:53 CONCLUSION: 1. There are fractures not visualized on the patient's prior plain radiographs involving the left femur, however the total hip arthroplasty appears intact and alignment is anatomical. Hip X-Ray 03/24/18 00:00 CONCLUSION: Status post left total hip arthroplasty with prosthesis in good position. Assessment and Plan (1) Garima-prosthetic fracture of femur following total hip arthroplasty: Code(s): M97.8XXA - Periprosthetic fracture around other internal prosthetic joint, initial encounter; Z96.649 - Presence of unspecified artificial hip joint Status: Acute Onset Date: 03/23/18 Y Plan Patient is an 82-year-old female with a past medical history of Mosqueda's esophagus and prior hip replacement who was brought to the emergency room after a fall with complaints of pain to the left hip. Closed fracture of left hip -Managed by orthopedics - now s/p Open reduction and internal fixation, periprosthetic fracture, left proximal femur, using Dall-Miles cables on 03/24. -Will need PT evaluation Leukocytosis -No obvious signs of infection, afebrile, UA negative -Now resolved-likely reactionary Dehydration -Continue gentle IVF hydration; okay to stop once taking p.o. -Now resolved with normal labs DVT prophylaxis: Per surgery/Orth Discharge planning: To be determined Progress Note: Quality VTE Deep Vein Thrombosis/Pulmonary Embolism Present on Admission: No _ (1) Garima-prosthetic fracture of femur following total hip arthroplasty Qualifiers: Encounter type: initial encounter Qualified Code(s): M97.8XXA - Periprosthetic fracture around other internal prosthetic joint, initial encounter; Z96.649 - Presence of unspecified artificial hip joint
[2018-03-24] MEDS ORDERED: Tranexamic Acid Inj 1,000 MG in Sodium Chlor 0.9% Inj 100 ML IV.SIG ONE (17:00)
[2018-03-24] MEDS: Ketorolac Inj 30 MG/ML (IVP) Vial IV.PUSH SCH (17:50)
[2018-03-24] MEDS: Senna/Docusate Sodium 8.6/50 MG Tablet PO SCH ×2 (19:26→21:41)
[2018-03-24] MEDS: Tolterodine Tartrate LA 4 MG Capsule PO SCH (19:26)
[2018-03-24] MEDS: ceFAZolin 1 GM Premix Inj 1 GM/50 ML PIGGYBACK IV.SIG SCH (21:42)
[2018-03-25] MEDS: ceFAZolin 1 GM Premix Inj 1 GM/50 ML PIGGYBACK IV.SIG SCH ×2 (03:07→08:43)
[2018-03-25] MEDS: Ketorolac Inj 30 MG/ML (IVP) Vial IV.PUSH SCH ×5 (03:55→23:51)
[2018-03-25 05:39] LABS: Hematocrit 31.8 % (35.0-46.0); Hemoglobin 10.8 gm/dL (11.6-15.3)
--- NOTE | 2018-03-25 06:37 | P.PNOP ---
Subjective Interval history: Postop day #1 She is doing relatively well. She has minimal complaints related to the hip and thigh at this time. She did not get to the floor until later in the day. She was "out of it" and did not really walk. There is no postoperative physical therapy note. Physical Exam Vital signs: Vital Signs 03/24/18 07:59 03/24/18 16:30 03/24/18 16:45 Temperature 97.2 F L 97.8 F Pulse Rate 96 H 97 H 87 Respiratory Rate 17 15 15 Blood Pressure 148/88 H 112/59 L 88/47 L Pulse Oximetry 91 L 92 L 93 L 03/24/18 17:00 03/24/18 17:15 03/24/18 17:30 Temperature Pulse Rate 82 85 82 Respiratory Rate 16 16 16 Blood Pressure 89/51 L 97/54 L 105/55 L Pulse Oximetry 93 L 94 L 95 03/24/18 17:40 03/24/18 17:45 03/24/18 18:10 Temperature 98.6 F Pulse Rate 76 76 Respiratory Rate 17 17 Blood Pressure 109/63 111/55 L Pulse Oximetry 94 L 95 95 03/24/18 18:39 03/24/18 19:50 03/25/18 00:20 Temperature 97.1 F L 96.9 F L 97.6 F Pulse Rate 80 83 80 Respiratory Rate 18 19 18 Blood Pressure 127/66 117/62 101/56 L Pulse Oximetry 92 L 92 L 95 03/25/18 04:40 Temperature 98.0 F Pulse Rate 78 Respiratory Rate 18 Blood Pressure 99/55 L Pulse Oximetry 95 Intake & Output 03/24/18 03/24/18 03/25/18 06:59 18:59 06:59 Intake Total 1240 / 1240 3270 / 3270 1580 / 1580 Output Total 1400 / 1400 800 / 800 Balance 1240 / 1240 1870 / 1870 780 / 780 Weight 83 kg 83 kg Intake: IV 1000 / 1000 1270 / 1270 1100 / 1100 LR 1000 mL Inj 1,000 ML @ 80 1000 / 1000 mls/hr IV.CONT .[id number] NORY Rx# :[id number] NS Inj 1,000 ML @ 100 mls/hr IV 1000 / 1000 1000 / 1000 .CONT .Q10H NORY Rx#:[id number] Cyklokapron Inj 1,000 MG In NS 220 / 220 Inj 100 ML @ 200 mls/hr IV.SIG ONCE ONE Rx#:[id number] Ancef 1 GM Premix Inj 1 gm In 100 / 100 50 ml @ 150 mls/hr IV.SIG Q6H [facility] Rx#:[id number] Ancef 2 GM Premix Inj 2 gm In 50 / 50 50 ml @ 100 mls/hr IV.SIG [employer] [facility] Rx#:[id number] Oral 240 / 240 480 / 480 Anesthesia Amount 1999 / 1999 Output: Estimated Blood Loss 650 / 650 Urine Amount (Catheter) 750 / 750 800 / 800 Indwelling Urethral Catheter 750 / 750 800 / 800 Other: # Voids 2 Date of Last Bowel Movement 03/22/18 03/23/18 # Bowel Movements 0 0 Weight On Admission 79.379 kg Narrative: She is resting comfortably, supine in bed. The dressing is dry and intact. Her neurovascular status is intact. There is not an excessive amount nor is there any induration. - Urinary Catheter Management Indwelling Urethral Catheter Cath placed during this visit: yes, but has since been removed by the nurse Urethral indwelling: Yes Reason for continuing: Decision to DC catheter Insertion date: 03/24/18 Insertion time: 13:25 Removal date: 03/25/18 Removal time: 05:49 Results - Labs CBC & Chem 7: 03/25/18 04:42 03/24/18 04:59 Laboratory Results - last 24 hr 03/25/18 04:42 Hgb 10.8 L D Hct 31.8 L - Imaging Impressions Hip X-Ray 03/24/18 00:00 CONCLUSION: Status post left total hip arthroplasty with prosthesis in good position. - Procedures Open reduction and internal fixation periprosthetic fracture, left hip using Dall-Miles cables on 03/24/2018 Assessment and Plan - Ortho Post Op Day # 1 - Problem List (1) Garima-prosthetic fracture of femur following total hip arthroplasty Code(s): M97.8XXA - Periprosthetic fracture around other internal prosthetic joint, initial encounter; Z96.649 - Presence of unspecified artificial hip joint Status: Acute Onset Date: ~03/23/18 Qualifiers: Encounter type: initial encounter Qualified Code(s): M97.8XXA - Periprosthetic fracture around other internal prosthetic joint, initial encounter; Z96.649 - Presence of unspecified artificial hip joint Plan: Continue postop care and PT. - Assessment and Plan Condition: Good. Orthopedically stable. DVT prophylaxis: TEDs, aspirin, sequentials. Discharge plans: Home with home health care after [facility]. She will need to remain nonweightbearing least 2 months. For this reason, it would be appropriate for her to have inpatient rehabilitation at [facility]. An appointment will be scheduled for 2-4 weeks.
[2018-03-25] MEDS: Senna/Docusate Sodium 8.6/50 MG Tablet PO SCH ×2 (08:44→20:50)
[2018-03-25] MEDS: Tolterodine Tartrate LA 4 MG Capsule PO SCH (08:45)
--- NOTE | 2018-03-25 17:32 | P.PNIM ---
Subjective Interval history: Patient is seen sitting quietly in bed. She tells me that her pain is well controlled. No chest pain or shortness of breath. No dizziness or syncope. No nausea vomiting or diarrhea. No fever or chills. She has been up with physical therapy which she tolerated well. Physical Exam Vital signs: Last Vital Signs Temp 98.2 F 03/25/18 16:00 Pulse 99 H 03/25/18 16:00 Resp 19 03/25/18 16:00 BP 109/59 L 03/25/18 16:00 Pulse Ox 93 L 03/25/18 16:00 Intake & Output 03/23/18 03/24/18 03/25/18 03/26/18 06:59 06:59 06:59 06:59 Intake Total 1240 / 1240 4850 / 4850 770 / 770 Output Total 2200 / 2200 800 / 800 Balance 1240 / 1240 2650 / 2650 -30 / -30 Weight 83 kg 83 kg Narrative: GENERAL: Well-nourished, well-developed adult female in no obvious distress. SKIN: Warm and dry. HEAD: Atraumatic. Normocephalic. CARDIOVASCULAR: Regular rate and rhythm. RESPIRATORY: No accessory muscle use. Clear to auscultation. Breath sounds equal bilaterally. GASTROINTESTINAL: Abdomen soft, non-tender, non-distended. Positive bowel sounds. MUSCULOSKELETAL: Extremities without clubbing, cyanosis, or edema. No obvious deformities. Surgical dressing in place to hip. No obvious drainage. Toes warm and well-perfused. NEUROLOGICAL: Awake and alert. No obvious cranial nerve deficits. Motor grossly within normal limits. Normal speech. PSYCHIATRIC: Appropriate mood and affect; insight and judgment good. 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 Closed fracture of left hip -Managed by orthopedics - now s/p Open reduction and internal fixation, periprosthetic fracture, left proximal femur, using [employer] cables on 03/24. -Will need PT evaluation Anemia -Suspect dilution rather than postoperative loss. 13.3 --> 10.8. -Repeat labs in the a.m. Leukocytosis -No obvious signs of infection, afebrile, UA negative -Now resolved-likely reactionary Dehydration -Continue gentle IVF hydration; okay to stop once taking p.o. 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
[2018-03-26] MEDS: Ketorolac Inj 30 MG/ML (IVP) Vial IV.PUSH SCH ×2 (05:00→11:38)
[2018-03-26 05:40] LABS: Hematocrit 29.4 % (35.0-46.0); Hemoglobin 10.1 gm/dL (11.6-15.3)
--- NOTE | 2018-03-26 08:04 | P.PNOP ---
Subjective Interval history: Postop day #2 She is doing relatively well. She has minimal pain with her hip at this time. Physical therapy reports that the ambulation distance was 4 steps. Physical Exam Vital signs: Vital Signs 03/25/18 08:18 03/25/18 11:21 03/25/18 16:00 Temperature 98.6 F 97.8 F 98.2 F Pulse Rate 86 93 H 99 H Respiratory Rate 19 19 19 Blood Pressure 111/57 L 103/56 L 109/59 L Pulse Oximetry 94 L 92 L 93 L 03/25/18 20:00 03/26/18 00:00 03/26/18 04:10 Temperature 98.0 F 98.3 F 97.9 F Pulse Rate 94 H 97 H 93 H Respiratory Rate 17 17 16 Blood Pressure 114/59 L 117/58 L 118/68 Pulse Oximetry 96 95 92 L Intake & Output 03/25/18 03/26/18 03/26/18 18:59 06:59 18:59 Intake Total 770 / 770 300 / 300 Output Total 800 / 800 Balance -30 / -30 300 / 300 Weight 83 kg Intake: IV 50 / 50 Ancef 1 GM Premix Inj 1 gm In 50 / 50 50 ml @ 150 mls/hr IV.SIG Q6H NORY Rx#:[id number] Oral 720 / 720 300 / 300 Output: Urine 800 / 800 Other: # Voids 1 Date of Last Bowel Movement 03/25/18 03/25/18 # Bowel Movements 1 0 Narrative: She is resting comfortably, supine in bed. Her dressing is dry and intact. The neurovascular status is intact. There is no erythema, induration or swelling. - Urinary Catheter Management Indwelling Urethral Catheter Cath placed during this visit: yes, but has since been removed by the nurse Urethral indwelling: Yes Reason for continuing: Decision to DC catheter Insertion date: 03/24/18 Insertion time: 13:25 Removal date: 03/25/18 Removal time: 05:49 Results - Labs CBC & Chem 7: 03/26/18 04:48 03/24/18 04:59 Laboratory Results - last 24 hr 03/26/18 04:48 Hgb 10.1 L Hct 29.4 L - Procedures Open reduction and internal fixation periprosthetic fracture, left hip using [employer] cables on 03/24/2018 Assessment and Plan - Ortho Post Op Day # 2 - Problem List (1) 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 Orthopedically stable. DVT prophylaxis: TEDs, aspirin, sequentials. Discharge plans: Home with home health care after a prison facility for rehabilitation. She will need to remain nonweightbearing least 2 months. For this reason, it would be appropriate for her to have inpatient rehabilitation at [facility] or a prison facility for rehabilitation. An appointment will be scheduled for 2-4 weeks.
[2018-03-26] MEDS: Tolterodine Tartrate LA 4 MG Capsule PO SCH (08:36)
[2018-03-26] MEDS: Senna/Docusate Sodium 8.6/50 MG Tablet PO SCH ×2 (10:02→20:04)
--- NOTE | 2018-03-26 11:33 | P.PNIM ---
Subjective Interval history: Patient is seen sitting up in bed reading a book. She is feeling well with no new complaints. Pain controlled. No fever or chills. Physical Exam Vital signs: Last Vital Signs Temp 98.5 F 03/26/18 08:00 Pulse 89 03/26/18 08:00 Resp 14 03/26/18 08:00 BP 113/55 L 03/26/18 08:00 Pulse Ox 94 L 03/26/18 08:00 Intake & Output 03/24/18 03/25/18 03/26/18 03/27/18 06:59 06:59 06:59 06:59 Intake Total 1240 / 1240 4850 / 4850 1070 / 1070 Output Total 2200 / 2200 800 / 800 Balance 1240 / 1240 2650 / 2650 270 / 270 Weight 83 kg 83 kg 83 kg Narrative: GENERAL: Well-nourished, well-developed adult female in no obvious distress. SKIN: Warm and dry. HEAD: Atraumatic. Normocephalic. CARDIOVASCULAR: Regular rate and rhythm. RESPIRATORY: No accessory muscle use. Clear to auscultation. Breath sounds equal bilaterally. GASTROINTESTINAL: Abdomen soft, non-tender, non-distended. Positive bowel sounds. MUSCULOSKELETAL: Extremities without clubbing, cyanosis, or edema. No obvious deformities. Surgical dressing in place to hip. No obvious drainage. Toes warm and well-perfused. NEUROLOGICAL: Awake and alert. No obvious cranial nerve deficits. Motor grossly within normal limits. Normal speech. 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 Closed fracture of left hip -Managed by orthopedics - now s/p Open reduction and internal fixation, periprosthetic fracture, left proximal femur, using D[employer]iles cables on 03/24. -PT consult Anemia -resolved -Suspect dilution rather than postoperative loss. 13.3 --> 10.8. -Repeat labs in the a.m.; stable Leukocytosis -resolved -No obvious signs of infection, afebrile, UA negative -Now resolved-likely reactionary Dehydration -resolved -Continue gentle IVF hydration; okay to stop once taking p.o. DVT prophylaxis: Per surgery/Orth Discharge planning: Will need rehab Patient appears to be medically stable at this time. Hospitalist service will sign off. Please reconsult if needed. 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
--- NOTE | 2018-03-27 07:52 | P.PNOP ---
Subjective Interval history: Postop day #3 She is doing well. She has minimal complaints related to the hip and thigh at this time. She does not feel that she is ready to go home independently yet. A retirement facility will be necessary for her rehabilitation. Physical therapy reports that the ambulation distance was 2 feet to the chair. Physical Exam Vital signs: Vital Signs 03/26/18 08:00 03/26/18 12:00 03/26/18 16:00 Temperature 98.5 F 98.3 F 98.3 F Pulse Rate 89 90 90 Respiratory Rate 14 14 15 Blood Pressure 113/55 L 118/58 L 112/55 L Pulse Oximetry 94 L 97 97 03/26/18 20:10 03/27/18 00:00 03/27/18 04:40 Temperature 98.4 F 99.7 F H 98.5 F Pulse Rate 96 H 108 H 87 Respiratory Rate 18 18 18 Blood Pressure 107/58 L 118/78 128/63 Pulse Oximetry 94 L 96 94 L Intake & Output 03/26/18 03/27/18 03/27/18 18:59 06:59 18:59 Intake Total 980 / 980 100 / 100 Output Total 500 / 500 Balance 480 / 480 100 / 100 Weight 85.8 kg Intake: Oral 980 / 980 100 / 100 Output: Urine 500 / 500 Other: # Voids 2 Date of Last Bowel Movement 03/25/18 03/25/18 # Bowel Movements 0 Narrative: She is resting comfortably, supine in bed. The dressing is dry and intact. There is no erythema, induration or edema. Her neurovascular status is intact. 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 Orthopedically stable. DVT prophylaxis: TEDs, aspirin, sequentials. Discharge plans: Home with home health care after a retirement facility for rehabilitation. She will need to remain nonweightbearing least 2 months. For this reason, it would be appropriate for her to have inpatient rehabilitation at [facility] or a retirement facility for rehabilitation. An appointment will need to be scheduled for 2-4 weeks.
[2018-03-27] MEDS: Tolterodine Tartrate LA 4 MG Capsule PO SCH (08:18)
[2018-03-27] MEDS: Senna/Docusate Sodium 8.6/50 MG Tablet PO SCH (08:19)
[2018-03-27 12:18] VITALS: BP 112/56; PULSE 102; RESP 18; TEMP 98.2; O2SAT 93
--- NOTE | 2018-03-27 13:44 | P.PNIM ---
Subjective Interval history: Patient is seen sitting up in chair. Son is at bedside. Patient tells me she is feeling well with no new concerns or complaints. No chest pain or shortness of breath. No nausea vomiting. no fever or chills. Physical Exam Vital signs: Last Vital Signs Temp 98.2 F 03/27/18 12:00 Pulse 102 H 03/27/18 12:00 Resp 18 03/27/18 12:00 BP 112/56 L 03/27/18 12:00 Pulse Ox 93 L 03/27/18 12:00 Intake & Output 03/25/18 03/26/18 03/27/18 03/28/18 06:59 06:59 06:59 06:59 Intake Total 4850 / 4850 1070 / 1070 1080 / 1080 Output Total 2200 / 2200 800 / 800 500 / 500 Balance 2650 / 2650 270 / 270 580 / 580 Weight 83 kg 83 kg 85.8 kg Routine HEENT Exam Comments: GENERAL: Well-nourished, well-developed adult female in no obvious distress. SKIN: Warm and dry. HEAD: Atraumatic. Normocephalic. CARDIOVASCULAR: Regular rate and rhythm. RESPIRATORY: No accessory muscle use. Clear to auscultation. Breath sounds equal bilaterally. GASTROINTESTINAL: Abdomen soft, non-tender, non-distended. Positive bowel sounds. MUSCULOSKELETAL: Extremities without clubbing, cyanosis, or edema. No obvious deformities. Surgical dressing in place to hip. No obvious drainage. Toes warm and well-perfused. NEUROLOGICAL: Awake and alert. No obvious cranial nerve deficits. Motor grossly within normal limits. Normal speech. Urinary Catheter Management Indwelling Urethral Catheter: Cath placed during this visit: yes, but has since been removed by the nurse Urethral indwelling: Yes Insertion date: 03/24/18 Insertion time: 13:25 Removal date: 03/25/18 Removal time: 05:49 Results Labs CBC & Chem 7: 03/26/18 04:48 03/24/18 04:59 Procedures Procedures: Open reduction and internal fixation periprosthetic fracture, left hip using [employer] cables on 03/24/2018 Assessment and Plan Plan Patient is an 82-year-old female with a past medical history of Mosqueda's esophagus and prior hip replacement who was brought to the emergency room after a fall with complaints of pain to the left hip. Closed fracture of left hip -Managed by orthopedics - now s/p Open reduction and internal fixation, periprosthetic fracture, left proximal femur, using Dall-Miles cables on 03/24. -PT consult Anemia -resolved -Suspect dilution rather than postoperative loss. 13.3 --> 10.8. -Repeat labs in the a.m.; stable Leukocytosis -resolved -No obvious signs of infection, afebrile, UA negative -Now resolved-likely reactionary Dehydration -resolved -Continue gentle IVF hydration; okay to stop once taking p.o. DVT prophylaxis: Per surgery/Orth Discharge planning: Will need rehab; likely today Progress Note: Quality VTE Deep Vein Thrombosis/Pulmonary Embolism Present on Admission: No
--- NOTE | 2018-03-27 13:47 | P.DS ---
DS: Providers Date of admission: 03/23/18 18:49 Primary care physician: Luz Sanots MD Consults: 03/23/18 18:47 Consult to Orthopedic Surgery Routine Consulting Provider: Fab Avery [employer] Administrator:: Fab Avery Reason for Consultation: hip fracture Notified:: Service Spoke with:: alec Date Notified:: 03/23/18 Time Notified:: 20:13 Ordering Provider: ERIC 03/24/18 16:04 Consult to Hospitalist Routine Consulting Provider: Farrah Kang Reason for Consultation: Medical evaluation and treatment, postop left total hip replacement. Notified:: Service Spoke with:: JEAN CLAUDE Date Notified:: 03/24/18 Time Notified:: 16:19 Ordering Provider: SUKHI 03/25/18 15:01 HUB Only Consult Order Routine Consulting Provider: [employer] [facility],Agency 03/26/18 08:02 HUB Only Consult Order Routine Consulting Provider: [employer] [facility],Agency 03/26/18 10:32 HUB Only Consult Order Routine Consulting Provider: Varinder Lewis,Agency 03/26/18 15:06 HUB Only Consult Order Routine Consulting Provider: Ryland Shay,Agency 03/27/18 09:36 HUB Only Consult Order Routine Consulting Provider: Deena Shaffer Brief History from admission: This is an 82-year-old female with a PMH of Mosqueda's Esophagus and h/o Hip Replacement who was brought to the ER after fall w/ complaints of left hip pain. Pain is intermittent, sharp, severe, 10/10, associated w/ muscle spasm and worse w/ movement. No head trauma or LOC reported. On arrival, BP 147/73, HR 90, O2 sat 97% on RA, Afebrile. WBC 12.2. Chemistry unremarkable except for GFR 66. Hip X-ray intact bilateral hip prosthesis CT Hip fractures not seen on x-rays involving left femur. Ortho consulted, plan is for surgical intervention in am. DS: Summary Patient is an 82-year-old female with a past medical history of Mosqueda's esophagus and prior hip replacement who was brought to the emergency room after a fall with complaints of pain to the left hip. Closed fracture of left hip -Managed by orthopedics - now s/p Open reduction and internal fixation, periprosthetic fracture, left proximal femur, using Dall-Miles cables on . -PT consult - needs rehab as will be 2 months nonweightbearing Anemia -resolved -Suspect dilution rather than postoperative loss. 13.3 --> 10.8. -Repeat labs in the a.m.; stable Leukocytosis -resolved -No obvious signs of infection, afebrile, UA negative -Now resolved-likely reactionary Dehydration -resolved -Continue gentle IVF hydration; okay to stop once taking p.o. Time Spent with Patient Total time spent providing and/or coordinating discharge services: <30 min Quality: VTE Deep Vein Thrombosis/Pulmonary Embolism Present on Admission: No Exam Narrative Exam Narrative: GENERAL: Well-nourished, well-developed adult female in no obvious distress. SKIN: Warm and dry. HEAD: Atraumatic. Normocephalic. CARDIOVASCULAR: Regular rate and rhythm. RESPIRATORY: No accessory muscle use. Clear to auscultation. Breath sounds equal bilaterally. GASTROINTESTINAL: Abdomen soft, non-tender, non-distended. Positive bowel sounds. MUSCULOSKELETAL: Extremities without clubbing, cyanosis, or edema. No obvious deformities. Surgical dressing in place to hip. No obvious drainage. Toes warm and well-perfused. NEUROLOGICAL: Awake and alert. No obvious cranial nerve deficits. Motor grossly within normal limits. Normal speech. Results Procedures completed during hospitalization: Open reduction and internal fixation periprosthetic fracture, left hip using Dall-Miles cables on [address] Impressions [address] Hip CT 03/23/18 16:53 CONCLUSION: 1. There are fractures not visualized on the patient's prior plain radiographs involving the left femur, however the total hip arthroplasty appears intact and alignment is anatomical. Hip X-Ray 03/24/18 00:00 CONCLUSION: Status post left total hip arthroplasty with prosthesis in good position. Discharge Plan Discharge Disposition Patient Disposition: 03 Discharge to SNF Discharge Condition Condition: Stable Discharge Order Discharge Orders: Discharge Order (Routine); Ordered 03/26/18 Ordered By: Shasha Roberts [facility] for Discharge (Routine); Ordered 03/27/18 Ordered By: Fab Avery Discharge Details Anticipated Discharge Date: 03/27/18 Physicians Team ED Provider: Hamida Glez Primary Care Provider: Luz Santos Attending Provider: Farrah Kang Other Providers: Fab Avery ; Farrah Kang ; [facility] ; [facility] ; [facility] ; [employer] /Orders / Referrals /Forms Prescriptions: New acetaminophen 325 mg Tablet 650 mg PO Q4H PRN (Reason: Temp > 100.4) RF: 0 hydrocodone-acetaminophen 5-325 mg Tablet 1 tab PO Q4H PRN (Reason: Acute Pain) 7 Days Qty: 42 RF: 0 Continue multivitamin [Multiple Vitamins] Tablet 1 tab PO DAILY RF: 0 aspirin [Ecotrin Low Strength] 81 mg Tablet,Delayed Release (Dr/Ec) 81 mg PO DAILY RF: 0 lansoprazole 30 mg Capsule,Delayed Release(Dr/Ec) 30 mg PO DAILY RF: 0 fesoterodine [Toviaz] 4 mg Tablet Extended Release 24 Hr 4 mg PO DAILY RF: 0 Referrals: Fab Avery MD [Physician] - See Instructions Luz Santos MD [Primary Care Provider] - See Instructions Discharge Instructions Patient Printed Instructions: How to Use an Incentive Spirometer (ED), How to Choose and Use a Walker (GEN), Narcotic Safety (DC), Fall Prevention for Older Adults (DC), MAXIMUS Hose (DC) Post Discharge Care Plan Care Plan Goals: Your Health Problems: Goals to Promote Your Health: * To prevent worsening of your condition * To maintain your health at the optimal level Directions to Meet Your Goals: * Take your medications as prescribed * Follow your dietary instruction * Follow activity as directed * Keep your appointments as scheduled * Take your immunizations and boosters as scheduled * If your symptoms worsen call your PCP * If no PCP go to Urgent Care or Emergency Room Smoking is dangerous to your health. Avoid second hand smoke. You may reach the 24-hour crisis hotline for domestic abuse at . Status ED Status: Left Department
== END 2018-03-27 15:00 ==
LOC: NEPE 15:38 → NEDA 18:49 → N06 20:00
PROVIDERS: ADMIT Hospitalist; ATTEND Hospitalist
PROC: ORIFFEM (2018-03-24 13:21)
DX: D64.9 Anemia, unspecified; E86.0 Dehydration; Z96.659 Presence of unspecified artificial knee joint; W01.0XXA Fall on same level from slipping, tripping and stumbling without subsequent striking against object, initial encounter; M97.02XA Periprosthetic fracture around internal prosthetic left hip joint, initial encounter; D72.829 Elevated white blood cell count, unspecified